=== PATIENT | female | born 1980 | race Caucasian/White ===

== ENCOUNTER 2021-06-21 12:47 | Emergency (ER) | payer OTHER ==
[~2021-06-21] VITALS: Ht 160 cm; Wt 44.0 kg
[2021-06-21 14:19] VITALS: BP 120/68
[2021-06-21] MEDS ORDERED: BUSPAR5 MG PO (14:21)
[2021-06-21] MEDS ORDERED: ELIQUIS2.5 MG (14:21)
[2021-06-21] MEDS ORDERED: GABAPENTIN100 MG PO (14:21)
== END 2021-06-21 16:00 | disposition left against medical advice (07) ==
LOC: ED 12:47
DX: F11.23 Opioid dependence with withdrawal (principal); Z91.19 Patient's noncompliance with other medical treatment and regimen

== ENCOUNTER 2021-06-27 16:34 | Emergency (ER) | payer OTHER ==
[~2021-06-27] VITALS: Ht 160 cm; Wt 58.0 kg
[~2021-06-27 16:34] MED LIST: BUSPAR5 MG PO; ELIQUIS2.5 MG; GABAPENTIN100 MG PO
[2021-06-27] MEDS ORDERED: BACTRIM DS1 TAB PO (17:45)
[2021-06-27 17:51] VITALS: BP 118/68
== END 2021-06-27 18:00 | disposition home or self-care (01) ==
LOC: ED 16:34
DX: L02.01 Cutaneous abscess of face (principal); F19.10 Other psychoactive substance abuse, uncomplicated; Z86.718 Personal history of other venous thrombosis and embolism